=== PATIENT | male | born 1960 | race Caucasian/White ===

== ENCOUNTER 2024-01-26 00:28 | Emergency (ER) | payer MEDICARE, OTHER ==
[~2024-01-26] VITALS: Ht 193 cm; Wt 77.1 kg
[~2024-01-26 00:28] MED LIST: AMLODIPINE BESY10 MG PO; IRBESARTAN150 MG PO
[2024-01-26 00:31] VITALS: RESP 24; TEMP 98.2
[2024-01-26 00:53] LABS: BASOPHILS # (AUTO) 0.1 (0.0-0.1); EOSINOPHILS # (AUTO) 0.1 (0.0-0.4); EOSINOPHILS % 0.9 % (0.0-6.0); HEMATOCRIT 39.5 % (38.2-49.6); HEMOGLOBIN 13.9 g/dL (14.0-18.0); LYMPHOCYTES # (AUTO) 3.8 (1.0-3.2); LYMPHOCYTES % 55.8 % (18.0-39.1); MEAN CORPUSCULAR HEMOGLOBIN 35.1 pg (28-32); MEAN CORPUSCULAR HGB CONC 35.2 g/dL (31-35); MEAN CORPUSCULAR VOLUME 99.7 fL (81-99); MONOCYTES # (AUTO) 0.9 (0.2-0.8); MONOCYTES % 12.6 % (4.4-11.3); NEUTROPHILS % 29.6 % (38.7-80.0); PLATELET COUNT 204 x10e3/uL (140-360); RED BLOOD COUNT 3.96 x10e6/uL (4.3-5.7); RED CELL DISTRIBUTION WIDTH 12.3 % (11.7-14.4); WHITE BLOOD COUNT 6.88 x10e3/uL (4.8-10.8)
[2024-01-26] MEDS: SODIUM CHLORIDE 0.9% 1000ML 1,000 ML IV STA (00:59)
[2024-01-26 01:07] LABS: ALANINE AMINOTRANSFERASE 65 IU/L (0-55); ALBUMIN 3.2 g/dL (3.5-5.0); ALBUMIN/GLOBULIN RATIO 0.8 (0.8-2.0); ALKALINE PHOSPHATASE 207 IU/L (40-150); ANION GAP 16.9 mmol/L (8-16); BILIRUBIN,TOTAL 0.7 mg/dL (0.2-1.2); BLOOD UREA NITROGEN < 5 mg/dL (7-26); CALCIUM 8.3 mg/dL (8.4-10.2); CARBON DIOXIDE 24 mmol/L (22-29); CHLORIDE 103 mmol/L (98-107); CREATINE KINASE 346 IU/L (30-200); CREATININE, SERUM 0.92 mg/dL (0.72-1.25); EST GLOMERULAR FILTRATION RATE 93 ML/MIN (>=60); GLUCOSE 139 mg/dL (74-118); LIPASE 28 U/L (8-78); SODIUM 141 mmol/L (136-145); TOTAL PROTEIN 7.3 g/dL (6.5-8.1)
[2024-01-26 01:08] LABS: BUN/CREATININE RATIO 5 (6-25); POTASSIUM 2.9 mmol/L (3.5-5.1)
[2024-01-26 01:26] LABS: TROPONIN I 0.004 ng/mL (0-0.300)
[2024-01-26] MEDS ORDERED: IOPAMIDOL 370 MG/ML 100 ML INFUS..BTL INJ ONE (01:30)
[2024-01-26] MEDS ORDERED: POTASSIUM CHLORIDE 20 MEQ TAB CR PO ONE (01:31)
[2024-01-26] MEDS: KETOROLAC TROMETHAMINE 30 MG/ML VIAL IV STA (01:32)
[2024-01-26] MEDS: POTASSIUM CHLORIDE 20 MEQ TAB CR PO STA (01:33)
[2024-01-26] MEDS: ONDANSETRON HCL INJ 2MG/ML 2ML 2 MG/ML VIAL IV STA (01:33)
[2024-01-26 02:00] VITALS: PULSE 96
[2024-01-26] MEDS ORDERED: AMOX TR-K CLV1 EAC2 PO (02:55)
[2024-01-26] MEDS ORDERED: ONDANSETRON ODT4 MG PO (02:55)
[2024-01-26] MEDS ORDERED: DICYCLOMINE HCL10 MG PO (02:55)
[2024-01-26 03:06] LABS: AMPHETAMINES SCREEN,URINE NEGATIVE (NEGATIVE); BILIRUBIN,URINE NEGATIVE (NEGATIVE); CLARITY,URINE CLEAR (CLEAR); COLOR,URINE YELLOW (YELLOW); GLUCOSE, URINE NEGATIVE (NEGATIVE); KETONES,URINE NEGATIVE (NEGATIVE); LEUKOCYTE ESTERASE ,URINE NEGATIVE (NEGATIVE); NITRITE,URINE NEGATIVE (NEGATIVE); OPIATES SCREEN,URINE NEGATIVE (NEGATIVE); PH,URINE 7.5 (5 - 7); PHENCYCLIDINE SCREEN,URINE NEGATIVE (NEGATIVE); PROTEIN,URINE DIPSTICK NEGATIVE (NEGATIVE); RBC,URINE 0-5 /HPF (0-5); URINE UROBILINOGEN 1 mg/dL (0.2 - 1); WBC,URINE (MAN) 0-5 /HPF (0-5)
[2024-01-26 03:07] LABS: BENZODIAZEPINES SCREEN,URINE NEGATIVE (NEGATIVE); CANNABINOIDS SCREEN,URINE NEGATIVE (NEGATIVE); METHADONE SCREEN, URINE NEGATIVE (NEGATIVE)
[2024-01-26 03:14] LABS: BACTERIA,URINE RARE /HPF; EPITHELIAL CELLS,URINE RARE /LPF
[2024-01-26 03:28] VITALS: BP 121/93; O2SAT 99
== END 2024-01-26 03:20 | disposition home or self-care (01) ==
LOC: ER 00:31
DX: R10.10 Upper abdominal pain, unspecified (principal); K52.9 Noninfective gastroenteritis and colitis, unspecified; F10.129 Alcohol abuse with intoxication, unspecified; E87.6 Hypokalemia; R94.31 Abnormal electrocardiogram [ECG] [EKG]; Z87.19 Personal history of other diseases of the digestive system
CPT/HCPCS: 36415; 71260; 74177; 80053; 80307; 80320; 81001; 82550; 83690; 84484; 85025; 93005; 99284; J1885; J2405; J7030; Q9967